=== PATIENT | female | born 1950 | race Caucasian/White ===

== ENCOUNTER 2020-06-29 00:09 | Emergency (ER) | payer OTHER ==
[~2020-06-29] VITALS: Ht 152.4 cm; Wt 64.9 kg
--- NOTE | ~2020-06-29 | EMS ---
[facility] [address] [place] [address] EMS Patient Care Report Name: ERIKA ALBA Room #: PRE M.R.#: [id number] Admission: Attend Phys: Discharge: Date of : 50 Report #: [id number] THIS REPORT FOR: //name// Report Transmitted: 06/28/2020 23:41 EMS Care Summary [place], [place]/[facility] Incident [id number] @ 06/28/2020 23:18 Incident Location [address] [place] [address] Patient ERIKA ALBA Female, 70 Years 1950 Patient Address [address] [place] [id number] Patient History Diabetes,Hypertension (HTN),Gastro-Esophageal Reflux Disease (GERD), Patient Allergies No known allergies, Patient Medications Metoclopramide, Rosuvastatin, Valsartan, Acetaminophen, Duloxetine, Tizanidine, Disposition Transported No Lights/[place] Reason Unconscious/Fainting Transported To [facility] Narrative THE PATIENT WAS FOUND SITTING ON THE TOILET OFF THE KITCHEN AT HOME. THE PATIENT STATES SHE HAD NOT BEEN FEELING GOOD AND HAD A SYNCOPAL EPISODE ON THE WAY TO THE HOSPITAL. THE PATIENT IS ALERT AND ORIENTED x4 NOW AND STATES SHE WAS ABLE TO STAND WITH THE HELP OF FAMILY AND GET TO THE BATHROOM ON HER OWN WHERE SHE HAD AN EPISODE OF NAUSEA, VOMITING AND DIARRHEA. THE PATIENT STATES SHE IS FEELING BETTER SINCE FINISHING IN THE BATHROOM. THE PATIENT NOW COMPLAINS OF DIZZINESS AND PAIN IN LOWER ABDOMINAL QUADRANTS. THE PATIENT [facility] [address] [place] [address] EMS Patient Care Report Name: JEREMYGRZEGORZDevangERIKA GARRETTHOA Room #: PRE ER M.R.#: [id number] Admission: Attend Phys: Discharge: Date of : 50 Report #: [id number] DENIES ANY OTHER COMPLAINTS. THE PATIENT WAS FOUND TO BE HYPOTENSIVE DURING THE COLLECTION OF VITAL SIGNS. NO OTHER ABNORMALITIES WERE NOTED. ATTEMPTS AT IV ACCESS WERE UNSUCCESSFUL. NO CHAGNES IN THE PATIENT'S CONDITION DURING TRANSPORT. THE PATIENT WAS MOVED TO BED 2 AT THE [facility] ER AND LEFT WITH THE SIDE RAILS UP AND LOCKED. CARE WAS TRANSFERRED TO THE ER NURSING STAFF. Initial Vitals @23:58P: 81,R: 14,BP: 82/61,Pain: 4/10,GCS: 15,CO: 0,SpO2: 100,Revised Trauma: 11, @23:34P: 82,R: 14,BP: 82/57,Pain: 4/10,GCS: 15,Glucose: 150,CO: 0,SpO2: 100,Revised Trauma: 11, @23:38P: 83,R: 14,BP: 72/46,Pain: 4/10,GCS: 15,CO: 0,SpO2: 100,Revised Trauma: 10, Assessments @23:26MENTAL:No Abnormalities,SKIN:No Abnormalities,HEENT:Head/Face: No Abnormalities,Eyes: No Abnormalities,Neck/Airway: No Abnormalities,LUNG SOUNDS:General: Vomiting,General: Diarrhea,Left Lower: Tenderness,Right Lower: Tenderness,Left Upper: No Abnormalities,Right Upper: No Abnormalities,ABDOMEN:General: Vomiting,General: Diarrhea,Left Lower: Tenderness,Right Lower: Tenderness,Left Upper: No Abnormalities,Right Upper: No Abnormalities,PELVIS//GI:No Abnormalities,EXTREMITIES:Left Arm: No Abnormalities,Right Arm: No Abnormalities,Left Leg: No Abnormalities,Right Leg: No Abnormalities,PULSE:Radial: 1+ Thready,NEURO:No Abnormalities, Impression Syncope / Fainting Procedures @23:26ALS AssessmentResponse: Unchanged@23:55Saline Lock cc (22 ga) Site: Hand-RightResponse: UnchangedFailed@23:50Saline Lock cc (20 ga) Site: Antecubital-RightResponse: UnchangedFailed Timeline 23:16,Call Received 23:16,Dispatch Notified 23:18,Dispatched 23:19,En Route 23:25,On Scene 23:26,At Patient 23:26,ALS Assessment,Response: Unchanged 23:34,BP: 82/57 M,PULSE: 82,RR: 14 R,SPO2: 100 Ox,ETCO2: ,B,PAIN: 4,GCS: 15, 23:38,BP: 72/46 M,PULSE: 83,RR: 14 R,SPO2: 100 Ox,ETCO2: ,BG: ,PAIN: 4,GCS: 15, 23:50,Saline Lock cc 20 ga Site: Antecubital-Right,Response: UnchangedFailed, 23:55,Saline Lock cc 22 ga Site: Hand-Right,Response: UnchangedFailed, [address] [address] EMS Patient Care Report Name: ERIKA ALBA Room #: PRE ER M.R.#: [id number] Admission: Attend Phys: Discharge: Date of : 50 Report #: [id number] 23:58,BP: 82/61 M,PULSE: 81,RR: 14 R,SPO2: 100 Ox,ETCO2: ,BG: ,PAIN: 4,GCS: 15, 00:00,Depart Scene 00:14,At Destination 00:19,Call Closed Disclaimer v1.1 Copyright 2020 [employer] This EMS Care Summary contains data elements from the applicable legal record (which may be displayed differently). It is designed to provide pertinent information for the following purposes: continuity of care, clinical quality, and state data reporting. The complete legal record is available to ED staff and administrators of the receiving hospital in [employer] Patient Tracker. All data is provided "as is."
[~2020-06-29 00:09] MED LIST: ALLER-EASE180 MG PO; AMARYL2 M1 PO; CRESTOR10 MG PO; CRESTOR40 MG PO; CYMBALTA60 MG PO; DIOVAN160 MG PO; DIOVAN320 MG PO; GLUCOPHAGE1000 MG PO; INVOKANA300 MG PO; KEFLEX500 MG PO; METFORMIN HCL500 MG PO; NEXIUM40 MG PO; VOLTAREN GEL 1100 G2; XANAX 0.5 MG0.5 MG PO; XANAX1 MG PO
[2020-06-29] MEDS ORDERED: ACETAMINOPHEN325 MG PO (00:28)
[2020-06-29] MEDS ORDERED: DIOVAN160 MG PO (00:29)
[2020-06-29] MEDS ORDERED: REGLAN 10 MG TA10 MG PO (00:29)
[2020-06-29] MEDS ORDERED: BUPROPION XL300 MG PO (00:30)
[2020-06-29] MEDS ORDERED: POTASSIUM CHLO10 MEQ PO (00:31)
[2020-06-29] MEDS ORDERED: ROSUVASTATIN CA20 MG PO (00:31)
[2020-06-29] MEDS ORDERED: TIZANIDINE HCL4 M1 PO (00:32)
[2020-06-29] MEDS ORDERED: DRIZALMA SPRINK60 MG PO (00:32)
[2020-06-29] MEDS ORDERED: METFORMIN HCL500 M3 PO (00:32)
[2020-06-29 00:33] LABS: ABSOLUTE NEUTROPHILS 7.7 thou/uL (1.4-8.2); BASOPHILS 0.5 % (0.0-2.0); EOSINOPHILS 0.8 % (0.0-3.0); HEMATOCRIT 39.4 % (37.0-47.0); LYMPHOCYTES 22.8 % (24.0-44.0); MCH 29.4 pg (26.0-34.0); MONOCYTES 5.6 % (1.0-8.0); PLATELET COUNT 370 thou/uL (150-400); POLYS 70.3 % (36.0-66.0); RBC 4.43 mil/uL (4.20-5.00); WBC 10.9 thou/uL (4.0-11.0)
[2020-06-29 00:46] LABS: ALBUMIN 3.7 g/dL (3.4-5.0); CALCIUM 9.8 mg/dL (8.5-10.1); CREATININE 2.1 mg/dL (0.6-1.0); TOTAL BILIRUBIN 0.3 mg/dL (0.2-1.0); TOTAL PROTEIN 7.7 g/dL (6.4-8.2)
[2020-06-29 03:38] LABS: URINE BILIRUBIN NEGATIVE (Negative); URINE BLOOD NEGATIVE (Negative); URINE CLARITY CLEAR; URINE COLOR YELLOW; URINE GLUCOSE-RANDOM* NEGATIVE (Negative); URINE KETONES NEGATIVE (Negative); URINE LEUKOCYTES-REFLEX NEGATIVE (Negative); URINE NITRITE-REFLEX NEGATIVE (Negative); URINE PROTEIN (DIPSTICK) NEGATIVE (Negative); URINE UROBILINOGEN 0.2 E.U./dl (0.2-1.0)
[2020-06-29 04:10] VITALS: BP 129/66
--- NOTE | 2020-06-29 09:51 | EKG ---
[facility] [place] [address] ELECTROCARDIOGRAM REPORT Name: ERIKA ALBA Room #: [place] SPRINGSDanielleDanielle#: [id number] Admission: 06/29/20 Attend Phys: Discharge: 06/29/20 Date of : 50 Report #: [id number] THIS REPORT FOR: cc: Stanislaw Chavez MD, Thomas P. MD Santiago,Zay [facility] ~ THIS REPORT FOR: //name// [facility] ED Test Date: 2020-06-29 Test Time: 00:13:57 Pat Name: ERIKA ALBA Department: Room: Gender: F Temporary Staff Accountant: danilo : 1950 Requested By: Ranulfo Villalobos Order Number: [id number] MD: Zay De La Torre Measurements Intervals Diggs Rate: 76 P: 38 VA: 153 QRS: -2 QRSD: 75 T: 39 QT: 418 QTc: 471 Interpretive Statements Sinus rhythm Possibly anteroseptal OR vs lead placement Q lead III inferior lead Compared to ECG 10/05/2014 08:01:31 Sinus tachycardia no longer present Electronically Signed On 06-29-2020 9:51:04 CHIP SEPARATOR by Zay De La Torre [email or web address] <ELECTRONICALLY SIGNED> By: Zya De La Torre MD, FAC 06/29/20 0951 0013 0013 Zay De La Torre MD, [facility] /EPI
== END 2020-06-29 04:14 | disposition home or self-care (01) ==
LOC: ER 00:09
PROVIDERS: Emergency Medicine
DX: N17.9 Acute kidney failure, unspecified (principal); R55 Syncope and collapse; E11.9 Type 2 diabetes mellitus without complications; E78.5 Hyperlipidemia, unspecified; K21.9 Gastro-esophageal reflux disease without esophagitis; Z79.899 Other long term (current) drug therapy; Z91.041 Radiographic dye allergy status